=== PATIENT | male | born 1985 | race Caucasian/White ===

== ENCOUNTER 2024-04-04 20:35 | Emergency (ER) | payer SELFPAY ==
[2024-04-04 20:39] VITALS: BP 129/82; BP 160/110; PULSE 110; PULSE 96; RESP 18; TEMP 36.9; O2SAT 98; O2SAT 99; BMI 24.3
--- NOTE | 2024-04-04 20:44 | PC.NURSE ---
belongings pt changed over by security, belongings in
--- NOTE | 2024-04-04 20:45 | MHC.EDTECH ---
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
--- NOTE | 2024-04-04 21:06 | ECG_ITS ---
Test Reason : OVERDOSED Blood Pressure : / mmHG Vent. Rate : 073 BPM Atrial Rate : 073 BPM P-R Int : 160 ms QRS Dur : 092 ms QT Int : 392 ms P-R-T Axes : 038 045 029 degrees QTc Int : 431 ms Normal sinus rhythm Normal ECG No previous ECGs available Referred By: Marilu Lewis Electronically Signed By:HECTOR TEE MD
--- NOTE | 2024-04-04 21:08 | ED_ITS ---
HPI - Overdose General Chief Complaint: Overdose Stated Complaint: found unresponsive, 4mg narcan, now AOC x4 Time Seen by Provider: 04/04/24 21:02 Source: EMS Mode of arrival: EMS Limitations: altered mental status History of Present Illness ED Provider: Dr. Marilu Lewis HPI Narrative: Patient comes to the emergency room via ambulance. Patient and his girlfriend were found unresponsive, bystanders gave to the patient 4 mg Narcan intranasal and patient woke up. Patient denies using heroin or narcotics, states that he drank too much alcohol. Patient states that he did not fall or have any injuries. Denies chest pain or shortness of breath. Related Data Allergies Allergy/AdvReac Type Severity Reaction Status Date / Time No Known Allergies Allergy Verified 04/04/24 20:41 Review of Systems Review of Systems: Constitutional : No Weight loss, No Fever, No Chills, No Night Sweats, No Fatigue, No Malaise, complaining of feeling somnolent ENT/Mouth : No Hearing loss, No Ear Pain, No Nasal Congestion, No Sinus Pain, No Hoarseness, No sore throat, No Rhinorrhea, No Swallowing Difficulty Eyes: No Eye Pain, No Swelling, No Redness, No Foreign Body, No Discharge, No Vision Changes Cardiovascular : No Chest Pain, No SOB, No Dyspnea on Exertion, No Orthopnea, No Edema, No Palpitations Respiratory : No Cough, No Sputum, No Wheezing, No Smoke Exposure, No Dyspnea Gastrointestinal : No Nausea, No Vomiting, No Diarrhea, No Constipation, No abdominal Pain, No Hematochezia, No Melena Genitourinary : no irregular bleeding, No Dysuria, No Urinary Frequency, No Hematuria, No Urinary Incontinence, No Urgency, No Flank Pain, No Urinary Flow Changes, No Hesitancy Musculoskeletal : No joint pain, No Myalgias, No Joint Swelling Skin : No Skin Lesions, No rash Neuro : No Weakness, No Numbness, No Paresthesias, No Loss of Consciousness, No Dizziness, No Headache Psych : No Anxiety/Panic, No Depression, No SI/HI/AH/VH, denies using drugs although he woke up to Narcan, states he drinks alcohol Heme/Lymph: No Bruising, No Bleeding,No Lymphadenopathy Endocrine : No Polyuria, No Polydipsia, No Temperature Intolerance [facility] Past Medical History Medical History (Updated 04/04/24 @ 21:15 by Marilu Lewis MD) Drug overdose Physical Exam Vital Signs: Vital Signs: Last Vital Signs Temp 98.4 F 04/04/24 20:39 Pulse 96 04/04/24 20:39 Resp 18 04/04/24 20:39 BP 129/82 04/04/24 20:39 Pulse Ox 99 04/04/24 20:39 O2 Del Method Room Air 04/04/24 20:39 BMI result Body Mass Index 24.3 Const: Other: Appearance: Somnolent, wakes up to sternal rub, opens eyes, answers questions, falls back asleep. No acute distress. Eyes: Pupils equal, round and reactive to light. ENT: Pharynx normal. Neck: Normal inspection. Neck supple. No lymph nodes noted. No crepitus CVS: Normal heart rate and rhythm. Pulses normal. Normal S1 and S2 Respiratory: No respiratory distress. Breath sounds normal. No Wheezing. No rales oxygen saturation 94% on room air Abdomen: Soft and nontender. No rigidity. No distention. Skin: Skin warm and dry. Normal skin color. Normal skin turgor. Extremities: No lower extremity edema. No Lacerations. No Rash Neuro: Oriented X 3. No motor deficit. No sensory deficit. Moving all extremities. No slurred speech. CN 2 through 12 grossly intact Psych: calm, very somnolent, easily arousable Course Course Course Narrative: -all of patient's labs are pending -vitals are stable -patient is sleeping -once patient wakes up and is coherent, we will assess for SI/HI -patient will be discharged when time comes with home Narcan -physician observation started at 21:15 Medical Decision Making Differential Diagnosis Differential Diagnoses: The differential diagnosis associated with the presentation includes (Drug overdose, polysubstance abuse, alcohol intoxication) Admission/Observation Consideration of admission/observation: Escalation of care including admission/observation considered (Patient is under physician observation waiting for patient to wake up from the overdose) Critical Care Time Critical Care Time Critical Care Time: Yes Total Critical Care Time: 45 Attestation: I have personally provided critical care time. Time includes review of lab data, radiology results, discussion with consultants, and monitoring for potential decompensation. Intervention performed as documented. Discharge Plan Discharge Clinical Impression: Drug overdose Patient Disposition: Still a Patient
--- NOTE | 2024-04-04 21:32 | PC.NURSE ---
pt not responsive to verbal or painful stimuli, narcan given intranasal, minimal effect. pt MD O2 is sustained at 97%, no more narcan needed at this time
[2024-04-04 21:39] VITALS: BP 109/72; PULSE 82; RESP 20; TEMP 37.1; O2SAT 96
[2024-04-04] MEDS: Naloxone HCl Nasal 4 MG SPRAY NOSTRILALT (21:43)
--- NOTE | 2024-04-04 21:49 | MHC.EDTECH ---
Patient blood drawn and sent to lab ,patient sleeping ,Call bean within Pt reach .
--- NOTE | 2024-04-04 22:01 | PC.NURSE ---
pt more awake at this time, c/o arm pain, requesting water, restless in bed, yelling out loud
[2024-04-04 22:04] LABS: MANUAL DIFF FLAG NO
[2024-04-04 22:05] LABS: Basophils Percent Auto 0.7 % (0-2); Eosinophils Absolute Auto 0.2 X10*3/uL (0.0-0.4); Hematocrit 39.4 % (42.0-52.0); Hemoglobin 14.1 g/dl (14.0-18.0); Imm Gran Abs Auto 0.01 X10*3/uL (0.00-0.03); Imm Gran Pct Auto 0.2 % (0.0-0.4); Lymphocytes Absolute Auto 1.6 X10*3/uL (1.2-4.9); Lymphocytes Percent Auto 28.1 % (20-40); Mean Corpuscular HGB Conc 35.8 g/dl (31.0-36.0); Mean Corpuscular Hemoglobin 33.1 pg (27.0-33.0); Mean Corpuscular Volume 92.5 fL (80.0-98.0); Monocytes Absolute Auto 0.5 X10*3/uL (0.1-1.2); Neutrophils Absolute Auto 3.4 x10*3/uL (2.0-8.3); Platelet Count 208 X10*3/uL (160-400); Red Blood Count 4.26 X10*6/uL (4.60-5.80); Red Cell Distribution Width 13.4 % (11.0-16.0); White Blood Count 5.8 X10*3/uL (4.8-10.8)
--- NOTE | 2024-04-04 22:06 | PC.NURSE ---
pt unwilling to participate or cooperate with answering any questions at this time
[2024-04-04 22:21] LABS: Alanine Aminotransferase 173 U/L (0-40); Albumin Level 4.4 g/dL (3.5-5.0); Alkaline Phosphatase 96 U/L (39-117); Anion Gap 17 (12-20); Aspartate Amino Transferase 212 U/L (5-37); Bilirubin Direct 0.2 mg/dL (0.0-0.5); Bilirubin Total 0.7 mg/dL (0.0-1.0); Blood Urea Nitrogen 9 mg/dL (9-16); Calcium 9.1 mg/dL (8.4-10.2); Carbon Dioxide 22 mmol/L (22-29); Chloride 106 mmol/L (96-108); Creatinine Clr Calc Pharmacy 122.4; Estimated Glomerular Filt Rate > 60; Ethanol 193 mg/dL; Glucose Random 118 mg/dL (60-115); Magnesium 2.2 mg/dL (1.6-2.6); Potassium 3.4 mmol/L (3.3-5.1); Sodium 142 mmol/L (135-145); Total Protein 7.5 g/dL (6.5-8.0)
[2024-04-04 22:28] LABS: Troponin-I High Sensitivity < 2.7 ng/L (<3.5-35.0)
[2024-04-04] MEDS: LORazepam 1 MG TABLET 2 MG PO (23:10)
--- NOTE | 2024-04-04 23:10 | PC.NURSE ---
pt flailing around on the bed, yelling, very restless and agitated, still wont answer questions. pt medicated per MAR
--- NOTE | 2024-04-04 23:29 | PC.NURSE ---
Visitor Stoney here for pt advised pt cannot have visitors due to nature of visit. States she just wanted to let him know she has his dog.
[2024-04-04 23:30] VITALS: BP 115/65; PULSE 74; RESP 16; TEMP 36.9; O2SAT 96
[2024-04-05 01:40] VITALS: BP 108/71; PULSE 70; RESP 16; TEMP 36.6; O2SAT 98
[2024-04-05 04:59] VITALS: BP 109/75; PULSE 63; RESP 14; TEMP 36.6; O2SAT 97
[2024-04-05 08:34] VITALS: BP 125/73; PULSE 71; RESP 13; TEMP 36.6; O2SAT 99
[2024-04-05] MEDS: Naloxone HCl Nasal TAKE HOME 4 MG SPRAY 8 MG NOSTRILALT (08:58)
== END 2024-04-05 10:00 ==
PROVIDERS: Emergency Provider Emergency Medicine
DX: T40.1X1A Poisoning by heroin, accidental (unintentional), initial encounter (principal); R40.4 Transient alteration of awareness; Y92.9 Unspecified place or not applicable; F11.24 Opioid dependence with opioid-induced mood disorder; F10.90 Alcohol use, unspecified, uncomplicated; Y90.9 Presence of alcohol in blood, level not specified; Z79.899 Other long term (current) drug therapy; Z51.81 Encounter for therapeutic drug level monitoring
CPT/HCPCS: 36415; 80048; 80076; 80307; 83735; 84484; 85025; 93005; 99284

== ENCOUNTER → 2024-04-04 21:06 | Outpatient (BNV) | payer SELFPAY | PROVIDERS: Emergency Provider Emergency Medicine; Visit Provider Internal Medicine Cardiovascular Disease | DX: F10.120 Alcohol abuse with intoxication, uncomplicated (principal) | CPT/HCPCS: 93010 ==

== ENCOUNTER 2025-06-11 14:38 | Emergency (ER) | payer SELFPAY ==
[2025-06-11 14:45] VITALS: BP 152/97; PULSE 116; O2SAT 97
--- NOTE | 2025-06-11 14:49 | ED_ITS ---
HPI - Overdose General Stated Complaint: OD,2 DOSES OF NARCAN FURNITURE [employer] EMS Time Seen by Provider: 06/11/25 14:48 Source: patient and EMS Mode of arrival: EMS Limitations: no limitations History of Present Illness ED Provider: DR. Parmar HPI Narrative: 40-year-old male came in by ambulance for possible overdose, patient admit that he has not slept for the past 2-3 days feeling very tired, patient declined using any street drugs or overdosing on medication, no SI, no HI, no hallucination, patient require sternal rub to, patient declined now any headache, no neck pain, no CP, no SOB, no abdominal pain. Patient insists to leave refuse any blood workup or any work in the emergency department. Related Data Allergies Allergy/AdvReac Type Severity Reaction Status Date / Time No Known Allergies Allergy Verified 04/04/24 20:41 Review of Systems Review of Systems: All other systems are reviewed and are negative Constitutional: Reports as per HPI and Reports no additional constitutional complaints Eyes: Reports as per HPI and Reports no additional eye complaints Reports system reviewed and no additional complaints, except as documented Cardiovascular: Reports as per HPI and Reports no additional cardiovascular complaints Respiratory: Reports as per HPI and Reports no additional respiratory complaints Gastrointestinal: Reports as per HPI and Reports no additional gastrointestinal complaints Genitourinary: Reports no additional female genitourinary complaints Musculoskeletal: Reports no additional musculoskeletal complaints Skin/Breast: Reports system reviewed and no additional complaints, except as docu Psychiatric: Reports no additional psychiatric complaints Endocrine: Reports no additional endocrine complaints Hematologic/Lymphatic: Reports no additional hematologic/lymphatic complaints Allergic/Immunologic: Reports no additional allergic/immunologic complaints Reports system reviewed and no additional complaints, except as documented and Reports Abnormal speech present [facility] Past Medical History Medical History Drug overdose Social History Social History Alcohol intake: current Advance Directives: No Advance Directives Information Provided: No Physical Exam Vital Signs: Vital Signs: BP 125/73, HR 71, RR 13, O2 sat is 99% on room air, temperature 97.9 degrees Appearance: Alert. Oriented X3. No acute distress. Head: Normal external exam. Normocephalic. Atraumatic. No Garcia signs noted. No raccoon eyes noted Eyes: PERRLA. EOMI. Conjunctiva and sclera normal. Eyelids normal. ENT: TM's Normal. Pharynx normal. Uvula midline. Moist mucous membranes. No trismus noted. No drooling noted. No muffled voice noted. Neck: Normal inspection. Neck supple. FROM. No adenopathy. Thyroid Normal. No meningeal signs. No neck mass noted. CVS: Normal heart rate and rhythm. Heart sound normal. No murmurs noted. Pulses normal throughout. Respiratory: No respiratory distress. Painless inspiration. Breath sounds normal. No wheezes/rales/rhonchi noted. Chest nontender. No accessory muscle usage noted or decreased air movement noted. Abdomen: Soft and nontender. Bowel sounds normal in all 4 quadrants. No distention noted. No organomegaly noted. No visible injury noted. Back: No CVA tenderness. Full range of motion noted. Skin: Skin warm and dry. Normal skin color. Normal skin turgor. No rashes/lesions/lacerations noted. Extremities: No lower extremity edema. Extremities exhibit normal range of motion. Extremities nontender. Neuro: Mental status: Normal attention, orientation, memory, and affect. Cranial nerves: Pupils are equal, round and reactive to light, EOMI, visual nunes are fall, face is symmetric, facial sensations are normal. Motor examination normal muscle tone, strength to 4 extremities. DTR are +2, planter's are flexor. Sensory exam; normal coordination, no ataxia, gait stable. Cerebellar exam: [id number] and [id number] is normal. Extrapyramidal system: No tremors, no rigidity with normal facial expressions. Pronator drift not present Patient Orientation: Person, Place, Time and Situation, okay hygiene and grooming. Fair eye contact, attentive, no tics or tremors. Level of Consciousness: Awake, Appropriate and Alert Patient Behavior: Appropriate, Guarded, Cooperative and Anxious Mood Description: Constricted, Blunted and Apprehensive Affect Description: Constricted, Blunted and Apprehensive Patient Cognition Impaired: No Ability to Follow Directions: Excellent Speech Pattern: Clear, Appropriate and Spontaneous Speech, nonpressured, spontaneous with regular rate and rhythm, normal volume and prosody. No dysarthria. Memory Description: Intact, Immediate Intact and Short Term Intact Hallucinations: None Delusions: Not Present Thought Process: Intact Thought Content: positive for Intact, positive for Logical, denies Suicidal Ideation and denies Homicidal Ideation. Depressive Symptoms: Not present. Judgement and Insight: Limited but adequate. Course Reevaluation(s) Reevaluation #1: Patient is refusing to wait for recovery team evaluation, no SI, no HI, patient does not want to wait for the nurse to provide with Narcan to take home. Time: 14:53 Medical Decision Making Differential Diagnosis Differential Diagnoses: The differential diagnosis associated with the presentation includes (Overdose, compromise airway, SI, HI, acute psychosis.) Admission/Observation Consideration of admission/observation: Escalation of care including admission/observation considered Lab Data MDM Lab Attestation statement: I reviewed the patient's lab results. Discharge Plan Discharge Clinical Impression: Drug overdose Patient Disposition: Elopement Instructions: Adult Overdose (ED) Print Language: Greenlandic
--- NOTE | 2025-06-11 14:54 | PC.NURSE ---
Prior to this RN obtaining EMS report pt already heading towards ED exit doors per EMS. This RN followed pt and encouraged him to go back to 22h for MD evaluation, pt agreeable after encouraging, became loud but not aggressive. Dr Parmar to bedside for eval.
== END 2025-06-11 14:57 | disposition left against medical advice (07) ==
PROVIDERS: Emergency Provider Emergency Medicine
DX: G47.00 Insomnia, unspecified (principal); Z53.21 Procedure and treatment not carried out due to patient leaving prior to being seen by health care provider